=== PATIENT | female | born 1965 | race Caucasian/White ===

== ENCOUNTER → 2016-12-20 | Outpatient (CLI) | payer BC ==
--- NOTE | 2016-12-20 10:18 | US ---
EXAMINATION TYPE: US pelvis complete transvag DATE OF EXAM: 12/20/2016 9:57 AM COMPARISON: NONE CLINICAL HISTORY: Endometrial Hyperplasia N85.00. HX of breast CA and on Tamoxifen x 6 years; assess for endometrial hyperplasia; patient denies pelvic pain. TECHNIQUE: Transvaginal (TV) and Transabdominal (TA) Date of LMP: NA EXAM MEASUREMENTS: Uterus: 9.3 x 5.9 x 3.2 cm Endometrial Stripe: 1.46 cm Right Ovary: 2.4 x 1.1 x 1.8 cm Left Ovary: 1.8 x 1.1 x 1.2 cm 1. Uterus: Anteverted; Multiple Nabothian cyst in cervix with largest = 0.5 x 0.6 x 0.4cm 2. Endometrium: multiple small cysts within endometrium and largest cyst noted in upper endometrium = 0.4 x 0.4 x 0.3cm; thickness is wnl on HRT as can be up to 15.0mm. 3. Right Ovary: wnl 4. Left Ovary: wnl Color Doppler imaging shows vascular patency in bilateral small ovaries 5. Bilateral Adnexa: wnl 6. Posterior cul-de-sac: wnl IMPRESSION: 1. There are multiple nabothian cysts as well as endometrial cysts. Correlate clinically. Endometrium measures 1.5 cm.
== END | disposition home or self-care (01) ==
LOC: RADUSWWP 09:16
PROVIDERS: ATTEND Internal Medicine Hematology & Oncology
DX: N88.8 Other specified noninflammatory disorders of cervix uteri (principal); N85.8 Other specified noninflammatory disorders of uterus; Z85.3 Personal history of malignant neoplasm of breast
CPT/HCPCS: 76830; 76856

== ENCOUNTER → 2024-03-13 | Outpatient (CLI) | payer OTHER | END | disposition home or self-care (01) | LOC: LABPRL 10:30 | PROVIDERS: ATTEND Nurse Practitioner Women's Health | DX: Z00.00 Encounter for general adult medical examination without abnormal findings (principal); E78.00 Pure hypercholesterolemia, unspecified; E55.9 Vitamin D deficiency, unspecified; E03.9 Hypothyroidism, unspecified | CPT/HCPCS: 80053; 80061; 82306; 84439; 84443; 85025 ==